=== PATIENT | male | born 1990 | race Two or more races ===

== ENCOUNTER 2025-04-02 23:31 | Emergency (ER) | payer SELFPAY ==
[~2025-04-02] VITALS: Ht 182.9 cm; Wt 129.7 kg
[2025-04-03 01:03] VITALS: BP 138/71; TEMP 97.9; O2SAT 96
[2025-04-03] MEDS ORDERED: ERYT3.5O9 LEFTEYE (01:07)
== END 2025-04-03 01:13 | disposition home or self-care (01) ==
LOC: ER 23:40
DX: H00.014 Hordeolum externum left upper eyelid (principal)

== ENCOUNTER 2025-04-16 01:15 | Emergency (ER) | payer OTHER ==
[~2025-04-16] VITALS: Ht 182.9 cm; Wt 104.3 kg
[~2025-04-16 01:15] MED LIST: ERYT3.5O9 LEFTEYE
[2025-04-16 01:40] VITALS: BP 145/85; TEMP 98
[2025-04-16] MEDS ORDERED: AMOX-430 PO (02:01)
[2025-04-16 02:06] VITALS: O2SAT 98
== END 2025-04-16 02:07 | disposition home or self-care (01) ==
LOC: ER 01:16
DX: K04.7 Periapical abscess without sinus (principal)